=== PATIENT | male | born 1985 | race Caucasian/White ===

== ENCOUNTER 2023-08-07 07:01 | Day surgery (SDC) | payer BC ==
[2023-08-06 10:30] VITALS: BMI 29.7
[2023-08-07] MEDS ORDERED: Oxymetazoline HCl 0.05% (30 ML BOT) ONE ×2 (07:56→08:46)
[2023-08-07] MEDS ORDERED: fentaNYL 50 mcg/mL 1 mL Vial ONE ×2 (08:06→11:02)
[2023-08-07] MEDS ORDERED: fentaNYL PF 100 MCG/2 ML SYRINGE ONE (08:06)
[2023-08-07] MEDS ORDERED: SUGAMMADEX SODIUM 200 MG/2 ML VIAL ONE (08:08)
[2023-08-07] MEDS ORDERED: Midazolam HCl 2 mg/2 ml Vial ONE (08:35)
[2023-08-07] MEDS ORDERED: EPINEPHrine 1 MG/ML VIAL ONE (08:46)
[2023-08-07] MEDS ORDERED: Bacitracin Zinc Ointment 30 gm TUBE ONE (08:49)
[2023-08-07] MEDS ORDERED: Lidocaine 1% (PF) 30 ML VIAL ONE (08:54)
[2023-08-07] MEDS ORDERED: KETAMINE 100 MG/ML (5ML VIAL) ONE (09:26)
[2023-08-07] MEDS ORDERED: Glycopyrrolate 0.2 MG/ML 5 ML SYRINGE ONE (09:32)
[2023-08-07] MEDS ORDERED: Labetalol HCl 100 MG/20 ML VIAL ONE (09:32)
[2023-08-07] MEDS ORDERED: Dexamethasone 20 MG/5 ML VIAL ONE (09:32)
[2023-08-07] MEDS ORDERED: Rocuronium Bromide 10 MG/ML (10ML VIAL) ONE (09:32)
[2023-08-07] MEDS ORDERED: Ondansetron PF 4 MG/2 ML Vial ONE (09:32)
[2023-08-07] MEDS ORDERED: Esmolol 100 MG/10 ML VIAL ONE (09:32)
[2023-08-07] MEDS ORDERED: PROPOFOL 200 MG/20 ML VIAL ONE (09:32)
[2023-08-07] MEDS ORDERED: methylPREDNISolone Acetate 40 mg/ml Vial ONE (09:42)
[2023-08-07] MEDS ORDERED: Ferric Subsulfate 8 ML TOPICAL SOLN ONE (09:59)
[2023-08-07] MEDS ORDERED: hydrALAZINE 20 MG/ML VIAL ONE (10:28)
[2023-08-07] MEDS ORDERED: Hydrocodone-Acetamin 15 ML UDCUP ONE (11:58)
== END 2023-08-07 13:58 | disposition home or self-care (01) ==
LOC: SDC 07:01
PROVIDERS: ATTEND Otolaryngology Plastic Surgery within the Head & Neck
PROC: 09BV8ZZ Excision of Left Ethmoid Sinus, Via Natural or Artificial Opening Endoscopic (ICD-10-PCS; principal; 2023-08-07)
PROC: 0CBP0ZZ Excision of Tonsils, Open Approach (ICD-10-PCS; principal; 2023-08-07)
PROC: 09BQ8ZZ Excision of Right Maxillary Sinus, Via Natural or Artificial Opening Endoscopic (ICD-10-PCS; principal; 2023-08-07)
PROC: 09BT8ZZ Excision of Left Frontal Sinus, Via Natural or Artificial Opening Endoscopic (ICD-10-PCS; principal; 2023-08-07)
PROC: 0CBQ0ZZ Excision of Adenoids, Open Approach (ICD-10-PCS; principal; 2023-08-07)
PROC: 09BR8ZZ Excision of Left Maxillary Sinus, Via Natural or Artificial Opening Endoscopic (ICD-10-PCS; principal; 2023-08-07)
PROC: 0CBN0ZZ Excision of Uvula, Open Approach (ICD-10-PCS; principal; 2023-08-07)
PROC: 09BL8ZZ Excision of Nasal Turbinate, Via Natural or Artificial Opening Endoscopic (ICD-10-PCS; principal; 2023-08-07)
PROC: 09BU8ZZ Excision of Right Ethmoid Sinus, Via Natural or Artificial Opening Endoscopic (ICD-10-PCS; principal; 2023-08-07)
PROC: 09BS8ZZ Excision of Right Frontal Sinus, Via Natural or Artificial Opening Endoscopic (ICD-10-PCS; principal; 2023-08-07)
DX: J32.4 Chronic pansinusitis (principal); J35.3 Hypertrophy of tonsils with hypertrophy of adenoids; J34.3 Hypertrophy of nasal turbinates; K13.79 Other lesions of oral mucosa; G47.33 Obstructive sleep apnea (adult) (pediatric); J45.909 Unspecified asthma, uncomplicated
CPT/HCPCS: 88302; 88304; J0171; J0360; J1030; J2001; J2250; J3010